=== PATIENT | female | born 1935 | race Caucasian/White ===

== ENCOUNTER 2017-05-22 10:48 | Observation (INO) | payer MEDICARE ==
[~2017-05-22] VITALS: Ht 162.6 cm; Wt 49.6 kg
[2017-05-22 11:38] VITALS: BP 156/76
[2017-05-22] MEDS ORDERED: VITA100C8 PO (12:04)
[2017-05-22] MEDS ORDERED: SELE200T17 PO (12:04)
[2017-05-22] MEDS ORDERED: ZINC50CA PO (12:04)
[2017-05-22] MEDS ORDERED: THIA100T27 PO (12:04)
[2017-05-22] MEDS ORDERED: PYRI100T2 PO (12:04)
[2017-05-22] MEDS ORDERED: LOPE2CAP PO (12:04)
[2017-05-22] MEDS ORDERED: LEVO75TA PO (12:04)
[2017-05-22] MEDS ORDERED: LISI5TAB7 PO (12:04)
[2017-05-22] MEDS ORDERED: KELP150T PO (12:04)
[2017-05-22] MEDS ORDERED: FOLI0.8T2 PO (12:04)
[2017-05-22] MEDS ORDERED: CEPH-375 PO (12:04)
[2017-05-22 12:20] LABS: MEAN PLATELET VOLUME 8.1 fL (7.4-10.4); PLATELET COUNT 157 x10^3/uL (130-400)
[2017-05-22 12:29] LABS: ANION GAP 8 mmol/L (5-15); CALCIUM 8.6 mg/dL (8.5-10.1); CHLORIDE 110 mmol/L (98-107)
[2017-05-22 12:48] LABS: <PLATELET ESTIMATE> ADEQUATE; <PLT MORPHOLOGY> NORMAL PLT MORPH; ANISOCYTOSIS 1+; BASOPHILS # (AUTO) 0.01 x10^3/uL (0-0.1); BASOPHILS % (AUTO) 0 % (0-1); EOSINOPHILS # (AUTO) 0.05 x10^3/uL (0-0.4); EOSINOPHILS % (AUTO) 2 % (1-7); LYMPHOCYTES # (AUTO) 0.81 x10^3/uL (1-3.4); LYMPHOCYTES % (AUTO) 28 % (22-44); MD MORPH REVIEW ONLY; MONOCYTES # (AUTO) 0.25 x10^3/uL (0.2-0.8); MONOCYTES % (AUTO) 8 % (2-9); NEUTROPHILS # (AUTO) 1.82 x10^3/uL (1.8-6.8); NEUTROPHILS % (AUTO) 62 % (42-75)
[2017-05-22] MEDS ORDERED: FENTANYL PF 100 MCG/2ML ONE (15:03)
[2017-05-22] MEDS ORDERED: MIDAZOLAM 1 MG/ML, 5ML ONE (15:03)
[2017-05-22] MEDS ORDERED: VERAPAMIL 2.5 MG/ML, 2ML ONE (15:04)
[2017-05-22] MEDS ORDERED: BIVALIRUDIN 250 MG ONE (15:04)
[2017-05-22] MEDS ORDERED: TICAGRELOR 90 MG TABLET ONE (15:04)
[2017-05-22] MEDS ORDERED: LIDOCAINE 2%, 20ML ONE (15:04)
[2017-05-22] MEDS ORDERED: HEPARIN 1,000 UNITS/ML, 10ML ONE (15:04)
[2017-05-22] MEDS ORDERED: DIPHENHYDRAMINE 50 MG/ML, 1ML ONE (15:12)
[2017-05-22] MEDS ORDERED: methylPREDNISolone SOD SUCC 125 MG/2 ML ONE (15:13)
[2017-05-22] MEDS ORDERED: LABETALOL 5MG/ML, 20ML ONE (16:10)
[2017-05-22] MEDS: LABETALOL 5MG/ML, 20ML IVPush PRN ×3 (16:41→17:59)
[2017-05-22 16:50] VITALS: BP 177/78
[2017-05-22] MEDS ORDERED: SODIUM CHLORIDE 0.9% 1,000 ML IV SCH (17:00)
[2017-05-22 17:15] VITALS: BP 179/74
[2017-05-22 17:24] VITALS: BP 162/74
[2017-05-22] MEDS ORDERED: hydrALAzine 20 MG/ML, 1ML ONE (18:26)
[2017-05-22] MEDS ORDERED: LISINOPRIL 20 MG TABLET PO ONE (18:30)
[2017-05-22] MEDS ORDERED: AMLODIPINE 5 MG TABLET PO ONE (18:30)
[2017-05-22] MEDS ORDERED: hydrALAzine 20 MG/ML, 1ML IV ONE (18:30)
[2017-05-22 18:35] VITALS: BP 181/79
[2017-05-22] MEDS: CARVEDILOL 3.125 MG TABLET PO SCH (21:54)
[2017-05-23 03:00] VITALS: BP 148/67
[2017-05-23 06:26] LABS: CREATININE 0.85 mg/dL (0.55-1.02)
[2017-05-23 06:27] LABS: MEAN CORPUSCULAR HEMOGLOBIN 34.4 pg (27.0-34.8); MEAN CORPUSCULAR HGB CONC 33.2 g/dL (32.4-35.8); MEAN CORPUSCULAR VOLUME 103.7 fL (80-100); RED BLOOD COUNT 3.85 x10^6/uL (3.82-5.3)
[2017-05-23] MEDS: CARVEDILOL 3.125 MG TABLET PO SCH (06:46)
[2017-05-23 06:53] VITALS: BP 137/71
[2017-05-23] MEDS ORDERED: LISI-170 PO (08:08)
[2017-05-23] MEDS ORDERED: CARV3.1212 PO (08:08)
[2017-05-23] MEDS ORDERED: LISINOPRIL 20 MG TABLET PO SCH (09:00)
== END 2017-05-23 09:49 | disposition home or self-care (01) ==
LOC: EDSEX 10:48 → CACL 10:48 → ORIP 18:40 → 5SO 19:40 → DCLOUNGE 05-23 09:25
PROVIDERS: ADMIT Internal Medicine Cardiovascular Disease; ATTEND Internal Medicine Cardiovascular Disease
DX: I25.10 Atherosclerotic heart disease of native coronary artery without angina pectoris (principal); I10 Essential (primary) hypertension; E78.5 Hyperlipidemia, unspecified; E78.2 Mixed hyperlipidemia
CPT/HCPCS: 36415; 80048; 85025; 92978; 93458; 96374; 99156; 99157; C1753; C1769; C1887; C1894; G0378; J0360; J1200; J1644; J2250; J2930; J3010; J3490; Q9967; J0583